=== PATIENT | female | born 1985 | race Caucasian/White ===

== ENCOUNTER 2018-04-07 04:07 | Observation (INO) | payer MEDICAID ==
[~2018-04-07] VITALS: Ht 147.3 cm; Wt 72.1 kg
[2018-04-07] MEDS ORDERED: PNV1TABL76 MT (05:43)
== END 2018-04-07 06:15 | disposition home or self-care (01) ==
LOC: L&D 04:07
PROVIDERS: ADMIT Obstetrics & Gynecology; ATTEND Obstetrics & Gynecology
DX: O62.9 Abnormality of forces of labor, unspecified (principal); O24.410 Gestational diabetes mellitus in pregnancy, diet controlled; Z3A.37 37 weeks gestation of pregnancy
CPT/HCPCS: 82962; 99281; G0378